=== PATIENT | female | born 1955 | race Two or more races ===

== ENCOUNTER 2018-03-30 07:48 | Outpatient (CLI) | payer OTHER ==
[~2018-03-30] VITALS: Ht 157.5 cm; Wt 54.4 kg
== END 2018-03-30 08:10 | disposition home or self-care (01) ==
LOC: OFIC 805 07:48
DX: J31.0 Chronic rhinitis (principal); H93.13 Tinnitus, bilateral; H90.3 Sensorineural hearing loss, bilateral

== ENCOUNTER 2018-03-30 11:34 | Outpatient (CLI) | payer OTHER | END 2018-03-30 11:40 | disposition home or self-care (01) | LOC: RAD 11:34 | DX: R10.84 Generalized abdominal pain (principal); M19.90 Unspecified osteoarthritis, unspecified site ==

== ENCOUNTER → 2018-09-22 | Outpatient (CLI) | payer OTHER | END | disposition home or self-care (01) | LOC: NUCLEAR 05-24 13:00 | DX: I87.2 Venous insufficiency (chronic) (peripheral) (principal) ==

== ENCOUNTER 2018-10-14 12:29 | Inpatient (IN) | payer OTHER ==
[~2018-10-14] VITALS: Ht 157.5 cm; Wt 52.6 kg
== END 2018-10-22 13:42 | disposition home or self-care (01) | DRG 191 ==
LOC: ER 12:29 → MEDJ 20:52 → SURG 20:52 → MEDJ 10-18 12:06
PROVIDERS: ADMIT Internal Medicine Cardiovascular Disease
PROC: 3E0F7GC Introduction of Other Therapeutic Substance into Respiratory Tract, Via Natural or Artificial Opening (ICD-10-PCS; principal; 2018-10-14)
PROC: 02HV33Z Insertion of Infusion Device into Superior Vena Cava, Percutaneous Approach (ICD-10-PCS; 2018-10-14)
PROC: B246ZZZ Ultrasonography of Right and Left Heart (ICD-10-PCS; 2018-10-15)
DX: J44.1 Chronic obstructive pulmonary disease with (acute) exacerbation (principal); D68.62 Lupus anticoagulant syndrome; I27.21 Secondary pulmonary arterial hypertension; J31.0 Chronic rhinitis; E03.8 Other specified hypothyroidism; H90.3 Sensorineural hearing loss, bilateral; Z98.61 Coronary angioplasty status; J22 Unspecified acute lower respiratory infection

== ENCOUNTER → 2018-11-23 | Outpatient (CLI) | payer OTHER | END | disposition home or self-care (01) | LOC: NUCLEAR 07:00 | DX: I27.0 Primary pulmonary hypertension (principal); R06.00 Dyspnea, unspecified ==

== ENCOUNTER 2018-12-27 19:07 | Emergency (ER) | payer OTHER ==
[~2018-12-27] VITALS: Ht 157.5 cm; Wt 53.5 kg
[2018-12-27] MEDS ORDERED: ELIQUIS5 MG (19:24)
[2018-12-27] MEDS ORDERED: ADEMPAS2.5 MG (19:24)
[2018-12-27] MEDS ORDERED: SYNTHROID75 MCG (19:24)
[2018-12-27] MEDS ORDERED: OPSUMIT10 MG (19:24)
[2018-12-27] MEDS ORDERED: PREDNISOLONE SO10 MG (19:26)
[2018-12-27] MEDS ORDERED: B-TREX (19:26)
== END 2018-12-28 20:05 | disposition home or self-care (01) ==
LOC: ER 19:07
DX: J44.1 Chronic obstructive pulmonary disease with (acute) exacerbation (principal); I27.21 Secondary pulmonary arterial hypertension; R06.02 Shortness of breath; R06.09 Other forms of dyspnea

== ENCOUNTER 2019-03-20 10:25 | Outpatient (CLI) | payer OTHER ==
[~2019-03-20 10:25] MED LIST: ADEMPAS2.5 MG; B-TREX; ELIQUIS5 MG; OPSUMIT10 MG; PREDNISOLONE SO10 MG; SYNTHROID75 MCG
== END 2019-03-20 11:00 | disposition home or self-care (01) ==
LOC: NUCLEAR 10:25
DX: I27.29 Other secondary pulmonary hypertension (principal); I26.01 Septic pulmonary embolism with acute cor pulmonale; D86.1 Sarcoidosis of lymph nodes; I26.99 Other pulmonary embolism without acute cor pulmonale
CPT/HCPCS: 78580; A9540

== ENCOUNTER 2019-05-10 10:43 | Outpatient (CLI) | payer OTHER | END 2019-05-10 11:00 | disposition home or self-care (01) | LOC: NUCLEAR 10:43 | DX: I27.20 Pulmonary hypertension, unspecified (principal) ==

== ENCOUNTER 2019-08-04 08:10 | Outpatient (CLI) | payer OTHER | END 2019-08-04 08:20 | disposition home or self-care (01) | LOC: NUCLEAR 08:10 | DX: I27.0 Primary pulmonary hypertension (principal); I67.89 Other cerebrovascular disease; E03.8 Other specified hypothyroidism; R09.89 Other specified symptoms and signs involving the circulatory and respiratory systems ==

== ENCOUNTER 2020-09-02 08:06 | Outpatient (CLI) | payer OTHER | END 2020-09-02 08:11 | disposition home or self-care (01) | LOC: LAB 08:06 | PROVIDERS: ATTEND Internal Medicine Rheumatology | DX: M06.89 Other specified rheumatoid arthritis, multiple sites (principal); D68.61 Antiphospholipid syndrome ==

== ENCOUNTER 2020-09-24 09:43 | Outpatient (CLI) | payer OTHER | END 2020-09-24 09:55 | disposition home or self-care (01) | LOC: TOM 09:43 | PROVIDERS: ATTEND Internal Medicine Gastroenterology | DX: Z12.11 Encounter for screening for malignant neoplasm of colon (principal) ==

== ENCOUNTER → 2020-12-04 | Outpatient (CLI) | payer OTHER | END | disposition home or self-care (01) | LOC: NUCLEAR 07:58 | DX: M86.8X0 Other osteomyelitis, multiple sites (principal) | CPT/HCPCS: 78315; A9503 ==

== ENCOUNTER 2020-12-06 10:52 | Outpatient (CLI) | payer OTHER | END 2020-12-06 11:00 | disposition home or self-care (01) | LOC: MRI 10:52 | PROVIDERS: ATTEND Orthopaedic Surgery | DX: M54.5 Low back pain (principal) | CPT/HCPCS: 72148 ==

== ENCOUNTER 2021-02-27 08:00 | Inpatient (IN) | payer OTHER ==
[~2021-02-27] VITALS: Ht 157.5 cm; Wt 51.7 kg
[2021-02-27] MEDS ORDERED: PROTONIX40 MG PO (10:00)
[2021-03-04] MEDS ORDERED: LIDOCAINE1 EACH (08:00)
[2021-03-04] MEDS ORDERED: FAMOTIDINE40 MG (08:00)
[2021-03-04] MEDS ORDERED: ESTAZOLAM2 MG (08:00)
[2021-03-04] MEDS ORDERED: TRAM1TAB98 (08:00)
[2021-03-04] MEDS ORDERED: RESTASIS1 EACH (08:00)
[2021-03-04] MEDS ORDERED: BUDESONIDE-FO10.2 G1 (08:00)
[2021-03-04] MEDS ORDERED: PENTOXIFYLLINE400 MG (08:01)
[2021-03-04] MEDS ORDERED: ESTRADIOL10 MCG (08:01)
[2021-03-04] MEDS ORDERED: GABAPENTIN100 M2 (08:01)
[2021-03-04] MEDS ORDERED: FUROSEMIDE20 MG (08:01)
[2021-03-06] MEDS ORDERED: DUI500 PO (11:46)
[2021-03-06] MEDS ORDERED: ELIQUIS5 MG PO (11:46)
[2021-03-06] MEDS ORDERED: PERCOCET 5-3251 EACH PO (11:46)
== END 2021-03-06 19:20 | DRG 470 ==
LOC: O/R 03-04 06:02 → SURG 03-04 06:02 → SURH 03-04 08:00 → SURG 03-04 11:24
PROVIDERS: ADMIT Orthopaedic Surgery; ATTEND Orthopaedic Surgery
PROC: 0SND0ZZ Release Left Knee Joint, Open Approach (ICD-10-PCS; 2021-03-04)
PROC: 0SRD0J9 Replacement of Left Knee Joint with Synthetic Substitute, Cemented, Open Approach (ICD-10-PCS; principal; 2021-03-04 09:15)
PROC: 30233N1 Transfusion of Nonautologous Red Blood Cells into Peripheral Vein, Percutaneous Approach (ICD-10-PCS; 2021-03-05)
DX: M17.12 Unilateral primary osteoarthritis, left knee (principal); M87.88 Other osteonecrosis, other site; D62 Acute posthemorrhagic anemia; M81.0 Age-related osteoporosis without current pathological fracture; Z20.822 Contact with and (suspected) exposure to COVID-19; I10 Essential (primary) hypertension

== ENCOUNTER 2021-05-13 03:21 | Inpatient (IN) | payer OTHER ==
[~2021-05-13] VITALS: Ht 157.5 cm; Wt 49.9 kg
[~2021-05-13 03:21] MED LIST changes: +BUDESONIDE-FO10.2 G1; +DUI500 PO; +ELIQUIS5 MG PO; +ESTAZOLAM2 MG; +ESTRADIOL10 MCG; +FAMOTIDINE40 MG; +FUROSEMIDE20 MG; +GABAPENTIN100 M2; +LIDOCAINE1 EACH; +PENTOXIFYLLINE400 MG; +PERCOCET 5-3251 EACH PO; +PROTONIX40 MG PO; +RESTASIS1 EACH; +TRAM1TAB98
[2021-05-13] MEDS ORDERED: ADEMPAS2.5 MG (03:46)
== END 2021-05-21 15:36 | disposition home or self-care (01) | DRG 388 ==
LOC: ER 03:21 → MEDI 14:10 → MEDJ 20:08 → SURG 05-19 17:26
PROVIDERS: ADMIT Surgery; ATTEND Surgery
PROC: BW2110Z Computerized Tomography (CT Scan) of Abdomen and Pelvis using Low Osmolar Contrast, Unenhanced and Enhanced (ICD-10-PCS; principal; 2021-05-13)
PROC: 8E0ZXY6 Isolation (ICD-10-PCS; 2021-05-13)
PROC: 4A12X4Z Monitoring of Cardiac Electrical Activity, External Approach (ICD-10-PCS; 2021-05-13)
PROC: 4A033R1 Measurement of Arterial Saturation, Peripheral, Percutaneous Approach (ICD-10-PCS; 2021-05-13)
PROC: BW2510Z Computerized Tomography (CT Scan) of Chest, Abdomen and Pelvis using Low Osmolar Contrast, Unenhanced and Enhanced (ICD-10-PCS; 2021-05-14)
PROC: B54MZZZ Ultrasonography of Right Upper Extremity Veins (ICD-10-PCS; 2021-05-15)
PROC: 3E0F7SF Introduction of Other Gas into Respiratory Tract, Via Natural or Artificial Opening (ICD-10-PCS; 2021-05-16)
PROC: 3E0F7GC Introduction of Other Therapeutic Substance into Respiratory Tract, Via Natural or Artificial Opening (ICD-10-PCS; 2021-05-16)
PROC: 30233N1 Transfusion of Nonautologous Red Blood Cells into Peripheral Vein, Percutaneous Approach (ICD-10-PCS; 2021-05-21)
DX: K56.699 Other intestinal obstruction unspecified as to partial versus complete obstruction (principal); J18.9 Pneumonia, unspecified organism; D68.61 Antiphospholipid syndrome; D64.9 Anemia, unspecified; I27.20 Pulmonary hypertension, unspecified; J44.9 Chronic obstructive pulmonary disease, unspecified; I10 Essential (primary) hypertension; E03.8 Other specified hypothyroidism; Z20.822 Contact with and (suspected) exposure to COVID-19; Z15.89 Genetic susceptibility to other disease; Z85.038 Personal history of other malignant neoplasm of large intestine

== ENCOUNTER 2021-06-10 08:43 | Outpatient (CLI) | payer OTHER | END 2021-06-10 08:46 | disposition home or self-care (01) | LOC: NUCLEAR 08:43 | PROVIDERS: ATTEND Internal Medicine Gastroenterology | DX: C18.8 Malignant neoplasm of overlapping sites of colon (principal) | CPT/HCPCS: 78815; A9552 ==

== ENCOUNTER → 2023-02-15 | Outpatient (CLI) | payer OTHER | END | disposition home or self-care (01) | LOC: NUCLEAR 08:00 | PROVIDERS: ATTEND Internal Medicine | DX: I11.9 Hypertensive heart disease without heart failure (principal) ==